=== PATIENT | female | born 1965 | race Native Hawaiian/Other Pacific Islander ===

== ENCOUNTER 2016-12-27 15:31 | Outpatient (CLI) | payer BC | END 2016-12-27 19:17 | disposition home or self-care (01) | LOC: MAMMO 15:31 → RAD 16:00 → MAMMO 19:17 | DX: Z12.31 Encounter for screening mammogram for malignant neoplasm of breast (principal); Z13.820 Encounter for screening for osteoporosis | CPT/HCPCS: G0202-TC ==

== ENCOUNTER 2017-03-01 13:42 | Outpatient (CLI) | payer BC | END 2017-03-01 15:00 | disposition home or self-care (01) | LOC: MAMMO 13:42 | DX: R92.0 Mammographic microcalcification found on diagnostic imaging of breast (principal) | CPT/HCPCS: G0206-TC ==

== ENCOUNTER 2018-08-02 10:54 | Outpatient (CLI) | payer BC | END 2018-08-02 21:52 | disposition home or self-care (01) | LOC: MAMMO 10:54 | DX: Z12.31 Encounter for screening mammogram for malignant neoplasm of breast (principal) ==

== ENCOUNTER 2019-02-17 18:20 | Emergency (ER) | payer BC ==
[~2019-02-17] VITALS: Ht 162.6 cm; Wt 113.4 kg
[2019-02-17] MEDS ORDERED: METFORMIN HYD1000 MG PO (18:43)
[2019-02-17] MEDS ORDERED: HYDR25TA60 PO (18:44)
[2019-02-17] MEDS ORDERED: GLIM4TAB PO (18:44)
[2019-02-17] MEDS ORDERED: SIMV20TA2 PO (18:44)
[2019-02-17] MEDS ORDERED: CINNAMON500 M1 PO (18:45)
[2019-02-17] MEDS ORDERED: IRON325 MG PO (18:45)
[2019-02-17] MEDS ORDERED: MULTIVITAMI1 PO (18:45)
[2019-02-17 19:35] VITALS: BP 142/77; TEMP 98.2
== END 2019-02-17 19:35 | disposition home or self-care (01) ==
LOC: ED 18:20
DX: T63.301A Toxic effect of unspecified spider venom, accidental (unintentional), initial encounter (principal); L03.116 Cellulitis of left lower limb
CPT/HCPCS: 96372; 99283; J2930

== ENCOUNTER 2019-08-20 08:35 | Outpatient (CLI) | payer BC ==
[~2019-08-20 08:35] MED LIST: CINNAMON500 M1 PO; GLIM4TAB PO; HYDR25TA60 PO; IRON325 MG PO; METFORMIN HYD1000 MG PO; MULTIVITAMI1 PO; SIMV20TA2 PO
== END 2019-08-20 22:25 | disposition home or self-care (01) ==
LOC: MAMMO 08:35
DX: Z12.31 Encounter for screening mammogram for malignant neoplasm of breast (principal)

== ENCOUNTER 2020-09-15 12:47 | Outpatient (CLI) | payer OTHER | END 2020-09-15 22:00 | disposition home or self-care (01) | LOC: MAMMO 12:47 | PROVIDERS: ATTEND Family Medicine | DX: Z12.31 Encounter for screening mammogram for malignant neoplasm of breast (principal) ==

== ENCOUNTER 2021-12-02 10:42 | Outpatient (CLI) | payer OTHER | END 2021-12-02 19:20 | disposition home or self-care (01) | LOC: MAMMO 10:42 | PROVIDERS: ATTEND Family Medicine | DX: Z12.31 Encounter for screening mammogram for malignant neoplasm of breast (principal) ==

== ENCOUNTER 2023-01-24 09:22 | Outpatient (CLI) | payer OTHER ==
[2023-01-24 09:39] LABS: PLATELET COUNT 138 K/uL (152-353)
== END 2023-01-24 18:57 | disposition home or self-care (01) ==
LOC: LABW 09:22
PROVIDERS: ATTEND Physician Assistant
DX: R53.83 Other fatigue (principal)
CPT/HCPCS: 36415; 85027